=== PATIENT | female | born 1965 | race Caucasian/White ===

== ENCOUNTER 2018-08-05 15:52 | Inpatient (IN) | payer OTHER ==
[2018-08-05 16:40] VITALS: BMI 21.7
--- NOTE | 2018-08-05 18:32 | HP ---
COWS - Scale Resting Pulse: 0= [place] 80 or Below Sweatin= Chills/Flushing Restless Observation: 1= Difficult to Sit Still Pupil Size: 2= Moderately Dilated (Pupils = 5 mm) Bone or Joint Aches: 0= None Runny Nose/ Eye Tearin= None GI Upset > 30mins: 0= None Tremor Observation: 2= Slight Tremor Visible Yawning Observation: 0= None Anxiety or Irritability: 1=Feels Anxious/Irritable Goose Flesh Skin: 0=Smooth Skin COWS Score: 7 CIWA Score - Admission Criteria OASAS Guidelines: Admission for Medically Managed Detox: Requires at least one of the followin. CIWA greater than 12 2. Seizures within the past 24 hours 3. Delirium tremens within the past 24 hours 4. Hallucinations within the past 24 hours 5. Acute intervention needed for co occurring medical disorder 6. Acute intervention needed for co occurring psychiatric disorder 7. Severe withdrawal that cannot be handled at a lower level of care (continued vomiting, continued diarrhea, abnormal vital signs) requiring intravenous medication and/or fluids 8. Admission ROS [facility] Chief Complaint: Having opiate withdrawal symptoms. Allergies/Adverse Reactions: Allergies Allergy/AdvReac Type Severity Reaction Status Date / Time No Known Allergies Allergy Verified 08/05/18 17:17 History of Present Illness: Here for opiate detox. Has been treated for opiate use disorder for many years. Last took heroin IV this am. [facility] does not share needles or works. Most recent Sublocade (extended-release buprenorphine) use was in March,. Hx 2 overdoses - last in 2002. Discussed loss of tolerance and overdose risks. [facility] has a Narcan kit at home and family knows how to use. Denies seizures or black outs. Longest length of sobriety was 15 years which ended 3 years ago. Feeling sad but denies thoughts of harming self or others. Not on any mental health medication. Denies significant PMH/PSH. Follows up routinely w/ PCP. [employer] off line . Patient requesting a Suboxone taper. Exam Limitations: No Limitations - Ebola screening Have you traveled outside of the country in the last 21 days: No (N) Have you had contact with anyone from an Ebola affected area: No Have you been sick,other than usual withdrawal symptoms: No Do you have a fever: No - Review of Systems Constitutional: Diaphoresis, Changes in sleep (Difficulty falling asleep.) EENT: reports: Cataracts ((R) eye cataract removal 2003), Nose Congestion, Dental Problems (Upper dentures. Chews and swallows ok.) Respiratory: reports: No Symptoms reported Cardiac: reports: No Symptoms Reported GI: reports: Constipated (Occ constipation when taking opiates. Last BM - yesterday - and difficulty to evacuate.), Other (Hx Barrots esophogitis. Denies pain at this time) : reports: No Symptoms Reported Musculoskeletal: reports: No Symptoms Reported Integumentary: reports: No Symptoms Reported Neuro: reports: Tremors Endocrine: reports: No Symptoms Reported Hematology: reports: No Symptoms Reported Psychiatric: reports: Judgement Intact, Orientated x3, Agitated, Anxious, Depressed (Depressed and sad. Denies thoughts of harming.) Patient History - Patient Medical History Hx Asthma: No Hx Chronic Obstructive Pulmonary Disease (COPD): No Hx Cardiac Disorders: No Hx Hypertension: No Hx Seizures: No Hx Diabetes: No Hx Gastrointestinal Disorders: No Hx Genitourinary Disorders: No Hx Sexually Transmitted Disorders: No Hx Renal Disease (ESRD): No Hx Human Immunodeficiency Virus (HIV): No (10 years ago - Declines retesting. ) Hx Depression: No Hx Suicide Attempt: No Hx Schizophrenia: No - Patient Surgical History Past Surgical History: Yes Hx Neurologic Surgery: No Hx Cataract Extraction: No Hx Cardiac Surgery: No Hx Lung Surgery: No Hx Breast Surgery: No Hx Breast Biopsy: No Hx Abdominal Surgery: No Hx Appendectomy: No Hx Cholecystectomy: No Hx Genitourinary Surgery: No Hx Section: Yes (1985) Hx Orthopedic Surgery: No Other Surgical History: TONSILECTOMY @ 9YRS Anesthesia Reaction: No - PPD History Previous Implant?: Yes Documented Results: Negative w/o proof Implanted On Prior R Admission?: No PPD to be Administered?: Yes - Reproductive History Patient is a Female of Child Bearing Age (11 -55 yrs old): Yes Last Menstrual Period: 07/28/18 (Sexually active) Patient : No - Smoking Cessation Smoking history: Current every day smoker Have you smoked in the past 12 months: Yes Aproximately how many cigarettes per day: 10 Hx Chewing Tobacco Use: No Initiated information on smoking cessation: Yes 'Breaking Loose' booklet given: 08/05/18 - Substance & Tx. History Hx Alcohol Use: No Hx Substance Use: Yes Substance Use Type: Heroin, Opiates (Illicit methadone) Hx Substance Use Treatment: Yes (TC - 15 yrs ago; detox, rehab, Suboxone, Sublocade injec ) - Substances Abused Heroin Route: Injection Frequency: Daily Amount used: 20 bags Age of first use: 32 Date of Last Use: 08/05/18 Admission Physical Exam [facility] - Vital Signs Vital Signs: Vital Signs - 24 hr 08/05/18 16:37 Temperature 97.7 F Pulse Rate 77 Respiratory 18 Rate Blood Pressure 112/73 - Physical General Appearance: Yes: Mild Distress HEENTM: Yes: EOMI, Normocephalic, BRAYAN (Pupils = 5 mm), Pharynx Normal, Rhinorrhea Respiratory: Yes: Lungs Clear, Normal Breath Sounds, No Respiratory Distress Neck: Yes: No masses,lesions,Nodules, Supple Breast: Yes: Breast Exam Deferred Cardiology: Yes: Regular Rhythm, Regular Rate, S1, S2 Abdominal: Yes: Non Tender, Soft, Increased Bowel Sounds Genitourinary: Yes: Within Normal Limits Back: Yes: Normal Inspection Musculoskeletal: Yes: full range of Motion, Gait Steady Extremities: Yes: Normal Capillary Refill, Normal Range of Motion, Non-Tender, Tremors (Tremors of hands when arms extended) Neurological: Yes: custom van converter II-XII NML intact, Fully Oriented, Motor Strength 5/5, Normal Mood/Affect Integumentary: Yes: Normal Color, Dry (Decreased skin turgor), Warm, Track Grayson (Old and new track grayson both antecubitals. (L) antecubital with newer injection sites and areas of firmness w/o increased warmth or erythema.) - Diagnostic (1) Opioid dependence with withdrawal Current Visit: Yes Status: Acute (2) Nicotine dependence, uncomplicated Current Visit: Yes Status: Chronic Qualifiers: Nicotine product type: cigarettes Qualified Code(s): F17.210 - Nicotine dependence, cigarettes, uncomplicated (3) Dehydration Current Visit: Yes Status: Acute BHS Breath Alcohol Content Breath Alcohol Content: 0 Urine Pregancy Test - Result Urine Test Results: Negative- NO Line Present Urine Drug Screen - Results Drug Screen Negative: No Urine Drug Screen Results: CLARKE-Cocaine, OPI-Opiates, MTD-Methadone, OXY- Oxycodone, FEN-Fentanyl, BUP-Suboxone
[2018-08-05] MEDS ORDERED: ACETAMINOPHEN 325 MG TABLET (FP) PO PRN (19:15)
[2018-08-05] MEDS ORDERED: MAGNESIUM HYDROX 2400MG/30ML ORAL SUSPENSION 30 ML CUP PO PRN (19:15)
[2018-08-05] MEDS ORDERED: MAG HYDROX/AL HYDROX/SIMETH 30 ML UNIT-DOSE CUP PO PRN (19:15)
[2018-08-05] MEDS ORDERED: LOPERAMIDE HCL 2 MG CAPSULE PO PRN (19:15)
[2018-08-05] MEDS ORDERED: MENTHOL/PHENOL 1 EACH UD MM PRN (19:15)
[2018-08-05] MEDS ORDERED: IBUPROFEN 400 MG TABLET (FP) PO PRN (19:15)
[2018-08-05] MEDS ORDERED: MAGNESIUM CITRATE 300 ML BOTTLE PO PRN (19:15)
[2018-08-05] MEDS ORDERED: NICOTINE POLACRILEX 2 MG GUM BC PRN (19:15)
[2018-08-05] MEDS ORDERED: BUPRENORPHINE/NALOXONE 2 MG/0.5 MG FILM PACKET SL PRN ×2 (20:16→20:27)
[2018-08-05] MEDS: diazePAM 5 MG TABLET PO PRN (21:46)
[2018-08-05] MEDS ORDERED: MELATONIN 5 MG TABLETS PO PRN (22:00)
[2018-08-05] MEDS ORDERED: THIAMINE HCL 100 MG TABLET (FP) PO SCH (22:00)
[2018-08-06 09:51] VITALS: BP 96/61; PULSE 64; TEMP 98.1
[2018-08-06] MEDS ORDERED: NICOTINE 21 MG/24 HOURS TOPICAL PATCH TD SCH (10:00)
[2018-08-06] MEDS ORDERED: PRENATAL VITAMINS W/ FOLIC ACID TABLET (FP) PO SCH (10:00)
[2018-08-06] MEDS ORDERED: BUPRENORPHINE/NALOXONE 2 MG/0.5 MG FILM PACKET SL SCH ×2 (10:00)
[2018-08-06] MEDS ORDERED: BUPRENORPHINE/NALOXONE 8 MG/2 MG FILM PACKET SL SCH (10:00)
[2018-08-06] MEDS: diazePAM 5 MG TABLET PO PRN (10:18)
[2018-08-06 10:28] LABS: HEMATOCRIT 37.5 % (32.4-45.2); HEMOGLOBIN 12.3 GM/dL (10.7-15.3); MCH 29.7 pg (25.7-33.7); MCHC 32.7 g/dl (32.0-36.0); MEAN PLT VOLUME 9.2 fl (7.5-11.1); PLATELET COUNT 185 K/MM3 (134-434); RBC 4.13 M/mm3 (3.60-5.2); RDW 14.5 % (11.6-15.6); WHITE BLOOD COUNT 5.7 K/mm3 (4.0-10.0)
[2018-08-06 10:32] LABS: URINE APPEARANCE CLOUDY; URINE BILIRUBIN NEGATIVE (<2.0 mg/dL); URINE COLOR AMBER; URINE GLUCOSE (UA) NEGATIVE (NEGATIVE); URINE KETONE NEGATIVE (NEGATIVE); URINE LEUK ESTERASE NEGATIVE (NEGATIVE); URINE NITRITE POSITIVE (NEGATIVE); URINE PROTEIN NEGATIVE (NEGATIVE); URINE UROBILINOGEN NEGATIVE mg/dL (0.2-1.0)
[2018-08-06 10:39] LABS: ALBUMIN 3.2 g/dl (3.4-5.0); ALK PHOS 85 U/L (45-117); ANION GAP 6 MMOL/L (8-16); BILIRUBIN,TOTAL 0.4 mg/dL (0.2-1); BLOOD UREA NITROGEN 9 mg/dL (7-18); CALCIUM 8.5 mg/dL (8.5-10.1); CHLORIDE 106 mmol/L (98-107); CO2 28 mmol/L (21-32); CREATININE 0.6 mg/dL (0.55-1.3); GLUCOSE,RANDOM 86 mg/dL (74-106); POTASSIUM 4.1 mmol/L (3.5-5.1); SGOT/AST 16 U/L (15-37); SGPT/ALT 23 U/L (13-61); SODIUM 141 mmol/L (136-145); TOT PROT 6.1 g/dl (6.4-8.2)
[2018-08-06 10:39] LABS: CALCIUM OXALATE CRYSTALS RARE /hpf (NONE SEEN); EPI CELLS FEW /HPF (FEW); URINE BACTERIA MANY /hpf (NONE SEEN); URINE MUCUS MODERATE
--- NOTE | 2018-08-06 11:28 | EKG ---
Test Reason : Blood Pressure : / mmHG Vent. Rate : 070 BPM Atrial Rate : 070 BPM P-R Int : 144 ms QRS Dur : 084 ms QT Int : 402 ms P-R-T Axes : 082 075 061 degrees QTc Int : 434 ms NORMAL SINUS RHYTHM NORMAL ECG NO PREVIOUS ECGS AVAILABLE Confirmed by KATALINA CAMPBELL MD ([id number]) on 08/06/2018 11:28:02 AM Referred By: Confirmed By:KATALINA CAMPBELL MD
--- NOTE | 2018-08-06 11:57 | PN ---
S COWS - Scale Resting Pulse: 0= [place] 80 or Below Sweatin= Chills/Flushing Restless Observation: 0= Sits Still Pupil Size: 0= Normal to Room Light Bone or Joint Aches: 1= Mild Discomfort Runny Nose/ Eye Tearin= None GI Upset > 30mins: 1= Stomach Cramp Tremor Observation of Outstretched Hands: 1= Tremor [place], Not Seen Yawning Observation: 1= 1-2x During Session Anxiety or Irritability: 1=Feels Anxious/Irritable Goose Flesh Skin: 0=Smooth Skin COWS Score: 6 S Progress Note (SOAP) Subjective: reported on suboxone maintenance program 8-2 mg bid last filled 07/28/18 of 30 days supply stated that mild gi distress tremor and body aches "My prescribes suboxone for me" Objective: 08/06/18 11:55 Vital Signs Temperature 98.1 F 08/06/18 09:50 Pulse Rate 64 08/06/18 09:50 Respiratory Rate 16 08/06/18 09:50 Blood Pressure 96/61 08/06/18 09:50 O2 Sat by Pulse Oximetry (%) Laboratory Last Values WBC 5.7 K/mm3 (4.0-10.0) 08/06/18 07:30 RBC 4.13 M/mm3 (3.60-5.2) 08/06/18 07:30 Hgb 12.3 GM/dL (10.7-15.3) 08/06/18 07:30 Hct 37.5 % (32.4-45.2) 08/06/18 07:30 MCV 91.0 fl (80-96) 08/06/18 07:30 MCH 29.7 pg (25.7-33.7) 08/06/18 07:30 MCHC 32.7 g/dl (32.0-36.0) 08/06/18 07:30 RDW 14.5 % (11.6-15.6) 08/06/18 07:30 Plt Count 185 K/MM3 (134-434) 08/06/18 07:30 MPV 9.2 fl (7.5-11.1) 08/06/18 07:30 Sodium 141 mmol/L (136-145) 08/06/18 07:30 Potassium 4.1 mmol/L (3.5-5.1) 08/06/18 07:30 Chloride 106 mmol/L (98-107) 08/06/18 07:30 Carbon Dioxide 28 mmol/L (21-32) 08/06/18 07:30 Anion Gap 6 MMOL/L (8-16) L 08/06/18 07:30 BUN 9 mg/dL (7-18) 08/06/18 07:30 Creatinine 0.6 mg/dL (0.55-1.3) 08/06/18 07:30 Creat Clearance w eGFR > 60 (>60) 08/06/18 07:30 Random Glucose 86 mg/dL (74-106) 08/06/18 07:30 Calcium 8.5 mg/dL (8.5-10.1) 08/06/18 07:30 Total Bilirubin 0.4 mg/dL (0.2-1) 08/06/18 07:30 AST 16 U/L (15-37) 08/06/18 07:30 ALT 23 U/L (13-61) 08/06/18 07:30 Alkaline Phosphatase 85 U/L (45-117) 08/06/18 07:30 Total Protein 6.1 g/dl (6.4-8.2) L 08/06/18 07:30 Albumin 3.2 g/dl (3.4-5.0) L 08/06/18 07:30 Urine Color June 08/05/18 23:18 Urine Appearance Cloudy 08/05/18 23:18 Urine pH 5.0 (5.0-8.0) 08/05/18 23:18 Ur Specific [place] 1.023 (1.010-1.035) 08/05/18 23:18 Urine Protein Negative (NEGATIVE) 08/05/18 23:18 Urine Glucose (UA) Negative (NEGATIVE) 08/05/18 23:18 Urine Ketones Negative (NEGATIVE) 08/05/18 23:18 Urine Blood Negative (NEGATIVE) 08/05/18 23:18 Urine Nitrite Positive (NEGATIVE) 08/05/18 23:18 Urine Bilirubin Negative (<2.0 mg/dL) 08/05/18 23:18 Urine Urobilinogen Negative mg/dL (0.2-1.0) 08/05/18 23:18 Ur Leukocyte Esterase Negative (NEGATIVE) 08/05/18 23:18 Urine WBC (Auto) 3 /hpf (3-5) 08/05/18 23:18 Urine RBC (Auto) 2 /hpf (0-3) 08/05/18 23:18 Ur Epithelial Cells Few /HPF (FEW) 08/05/18 23:18 Calcium Oxalate Crystal Rare /hpf (NONE SEEN) 08/05/18 23:18 Urine Bacteria Many /hpf (NONE SEEN) 08/05/18 23:18 Urine Mucus Moderate 08/05/18 23:18 lab noted repeat ua Assessment: 08/06/18 11:56 withdrawal sx Plan: continue detox discuss risks of combination of methadone and suboxone purpose of methadone and suboxone explained
--- NOTE | 2018-08-06 13:33 | DS ---
[facility] Detox Discharge Summary Admission Date: 08/05/18 Discharge Date: 08/06/18 - History Present History: Opioid Dependence Additional Comments: 53 years old female admitted on 08/05/18 for opiate withdrawal stabilization insists to leave the detox unit that she is in suboxone maintenance program on 8 -2 mg bid last filled 07/28/18 strong recommend the patient return to suboxone program for possible gradually diallo off patient reported that she had sublocade IM unknown time frame of the injection discussed risks of opiate overdose while taking suboxone or taking sublocade IM [id number] - Physical Exam Results Vital Signs: Vital Signs Temperature 98.1 F 08/06/18 09:50 Pulse Rate 64 08/06/18 09:50 Respiratory Rate 16 08/06/18 09:50 Blood Pressure 96/61 08/06/18 09:50 O2 Sat by Pulse Oximetry (%) Pertinent Admission Physical Exam Findings: opiate withdrawal sx Laboratory Last Values WBC 5.7 K/mm3 (4.0-10.0) 08/06/18 07:30 RBC 4.13 M/mm3 (3.60-5.2) 08/06/18 07:30 Hgb 12.3 GM/dL (10.7-15.3) 08/06/18 07:30 Hct 37.5 % (32.4-45.2) 08/06/18 07:30 MCV 91.0 fl (80-96) 08/06/18 07:30 MCH 29.7 pg (25.7-33.7) 08/06/18 07:30 MCHC 32.7 g/dl (32.0-36.0) 08/06/18 07:30 RDW 14.5 % (11.6-15.6) 08/06/18 07:30 Plt Count 185 K/MM3 (134-434) 08/06/18 07:30 MPV 9.2 fl (7.5-11.1) 08/06/18 07:30 Sodium 141 mmol/L (136-145) 08/06/18 07:30 Potassium 4.1 mmol/L (3.5-5.1) 08/06/18 07:30 Chloride 106 mmol/L (98-107) 08/06/18 07:30 Carbon Dioxide 28 mmol/L (21-32) 08/06/18 07:30 Anion Gap 6 MMOL/L (8-16) L 08/06/18 07:30 BUN 9 mg/dL (7-18) 08/06/18 07:30 Creatinine 0.6 mg/dL (0.55-1.3) 08/06/18 07:30 Creat Clearance w eGFR > 60 (>60) 08/06/18 07:30 Random Glucose 86 mg/dL (74-106) 08/06/18 07:30 Calcium 8.5 mg/dL (8.5-10.1) 08/06/18 07:30 Total Bilirubin 0.4 mg/dL (0.2-1) 08/06/18 07:30 AST 16 U/L (15-37) 08/06/18 07:30 ALT 23 U/L (13-61) 08/06/18 07:30 Alkaline Phosphatase 85 U/L (45-117) 08/06/18 07:30 Total Protein 6.1 g/dl (6.4-8.2) L 08/06/18 07:30 Albumin 3.2 g/dl (3.4-5.0) L 08/06/18 07:30 Urine Color June 08/05/18 23:18 Urine Appearance Cloudy 08/05/18 23:18 Urine pH 5.0 (5.0-8.0) 08/05/18 23:18 Ur Specific [place] 1.023 (1.010-1.035) 08/05/18 23:18 Urine Protein Negative (NEGATIVE) 08/05/18 23:18 Urine Glucose (UA) Negative (NEGATIVE) 08/05/18 23:18 Urine Ketones Negative (NEGATIVE) 08/05/18 23:18 Urine Blood Negative (NEGATIVE) 08/05/18 23:18 Urine Nitrite Positive (NEGATIVE) 08/05/18 23:18 Urine Bilirubin Negative (<2.0 mg/dL) 08/05/18 23:18 Urine Urobilinogen Negative mg/dL (0.2-1.0) 08/05/18 23:18 Ur Leukocyte Esterase Negative (NEGATIVE) 08/05/18 23:18 Urine WBC (Auto) 3 /hpf (3-5) 08/05/18 23:18 Urine RBC (Auto) 2 /hpf (0-3) 08/05/18 23:18 Ur Epithelial Cells Few /HPF (FEW) 08/05/18 23:18 Calcium Oxalate Crystal Rare /hpf (NONE SEEN) 08/05/18 23:18 Urine Bacteria Many /hpf (NONE SEEN) 08/05/18 23:18 Urine Mucus Moderate 08/05/18 23:18 lab noted - Treatment Hospital Course: Detox Protocol Followed, Responded well Patient has Accepted a Rehab Referral to: [facility] - Medication Discharge Medications: Ambulatory Orders NK [No Known Home Medication] 08/05/18 - Diagnosis (1) Encounter for monitoring Suboxone maintenance therapy Current Visit: Yes Status: Chronic (2) Opioid dependence with withdrawal Current Visit: Yes Status: Acute (3) Nicotine dependence, uncomplicated Current Visit: Yes Status: Acute Qualifiers: Nicotine product type: cigarettes Qualified Code(s): F17.210 - Nicotine dependence, cigarettes, uncomplicated - AMA Did Patient Leave Against Medical Advice: Yes
[2018-08-08] MEDS ORDERED: BUPRENORPHINE/NALOXONE 2 MG/0.5 MG FILM PACKET SL SCH ×2 (10:00→20:00)
[2018-08-10] MEDS ORDERED: BUPRENORPHINE/NALOXONE 2 MG/0.5 MG FILM PACKET SL SCH (10:00)
== END 2018-08-06 13:06 | disposition left against medical advice (07) | DRG 894 ==
LOC: YASAS 15:52 → Y6N 19:59
PROC: HZ2ZZZZ Detoxification Services for Substance Abuse Treatment (ICD-10-PCS; principal; 2018-08-05)
DX: F11.23 Opioid dependence with withdrawal (principal); F17.210 Nicotine dependence, cigarettes, uncomplicated; E86.0 Dehydration; Z51.81 Encounter for therapeutic drug level monitoring
CPT/HCPCS: 36415; 80053; 81003; 81015; 85027; 86593; 93005; 93010